=== PATIENT | male | born 1985 | race Caucasian/White ===

== ENCOUNTER 2017-11-06 15:55 | Emergency (ER) | payer MEDICAID ==
[2017-11-06 16:00] VITALS: BP 155/100
--- NOTE | 2017-11-06 16:11 | ED Physician Documentation ---
PD HPI SKIN - Stated complaint Stated Complaint: CYST ON TAILBONE - Chief complaint Chief Complaint: General - History obtained from History obtained from: Patient - History of Present Illness Timing - onset: How many days ago (4) Timing - duration: Days (4) Timing - details: Gradual onset, Still present Location: Back Quality / character: Painful, Raised, Swelling. No: Draining Associated symptoms: No: Fever Similar symptoms before: Diagnosis (pilonidal cyst) Recently seen: Not recently seen - Additional information Additional information: 32-year-old male who has a history of pilonidal cyst since his early 20s has had to have this lanced and drained once. He has had success previously with antibiotic. He has been told at one point that he did not need an operation. Review of Systems Constitutional: denies: Fever Respiratory: denies: Cough GI: denies: Vomiting Skin: reports: Lesions. denies: Rash Musculoskeletal: reports: Back pain. denies: Neck pain PD PAST MEDICAL HISTORY - Past Surgical History Past Surgical History: No - Present Medications Home Medications: Ambulatory Orders Medication Instructions Recorded Confirmed Sulfamethoxazole/Trimethoprim 1 each PO BID #14 tablet 11/06/17 [Sulfamethoxazole-Tmp Ds Tablet] - Allergies Allergies/Adverse Reactions: Allergies Allergy/AdvReac Type Severity Reaction Status Date / Time No Known Drug Allergies Allergy Verified 11/06/17 16:00 - Social History Does the pt smoke?: Yes Smoking Status: Current every day smoker Does the pt drink ETOH?: Yes Does the pt have substance abuse?: Yes - Immunizations Immunizations are current?: Yes - POLST Patient has POLST: No PD ED PE NORMAL - Vitals Vital signs reviewed: Yes (hypertensive ) - General General: Alert and oriented X 3, No acute distress, Well developed/nourished - HEENT HEENT: Atraumatic, PERRL - Respiratory Respiratory: No respiratory distress - Derm Derm: Normal color, Warm and dry, No rash - Extremities Extremities: No deformity, Other (There is an area at the end of the tailbone that is swollen and tendern conistent with an active pilonidal cyst) - Neuro Neuro: No motor deficit, No sensory deficit Eye Opening: Spontaneous Motor: Obeys Commands Verbal: Oriented GCS Score: 15 - Psych Psych: Normal mood, Normal affect Results - Vitals Vitals: Vital Signs - 24 hr 11/06/17 15:59 Temperature 36.8 C Heart Rate 93 Respiratory 20 Rate Blood Pressure 155/100 H O2 Saturation 100 Oxygen O2 Source Room air PD MEDICAL DECISION MAKING - ED course Complexity details: considered differential, d/w patient ED course: 32-year-old male with an active pilonidal cyst that is quite tender has no evidence of fluctuance today. I discussed with the patient the natural history and course of the pilonidal cyst and the ripening phenomena and of asked him to return to the emergency department if the pilonidal cyst Reitman's. Otherwise he will follow-up with surgery. Departure - Departure Disposition: Home, Self Care Clinical Impression: Pilonidal cyst Condition: Stable Instructions: ED Cyst Pilonidal Infec Abx Only Follow-Up: Ayaz Munoz MD [Provider Admit Priv/Credential] - Prescriptions: Sulfamethoxazole/Trimethoprim [Sulfamethoxazole-Tmp Ds Tablet] 1 each PO BID # 14 tablet
== END 2017-11-06 16:24 | disposition home or self-care (01) ==
LOC: ED 15:55
DX: L05.91 Pilonidal cyst without abscess (principal); F17.200 Nicotine dependence, unspecified, uncomplicated
CPT/HCPCS: 99283

== ENCOUNTER 2018-12-31 11:11 | Emergency (ER) | payer MEDICAID ==
[2018-12-31] MEDS ORDERED: DEXAMETHASONE 10 MG/ML VIAL IVP STA (13:59)
[2018-12-31] MEDS ORDERED: KETOROLAC 30 MG/ML VIAL IVP STA (13:59)
[2018-12-31] MEDS ORDERED: IOVERSOL 320 100 ML VIAL IVP ONE (14:10)
[2018-12-31 14:23] LABS: BASOPHILS # (AUTO) 0.1 10^3/uL (0.0-0.1); BASOPHILS % (AUTO) 0.6 %; EOSINOPHILS # (AUTO) 0.3 10^3/uL (0.0-0.7); EOSINOPHILS % (AUTO) 1.3 %; LYMPHOCYTES # (AUTO) 2.4 10^3/uL (1.5-3.5); LYMPHOCYTES % (AUTO) 11.7 %; MEAN CORPUSCULAR HEMOGLOBIN 30.2 pg (27.0-31.0); MEAN CORPUSCULAR VOLUME 91.7 fL (80.0-94.0); MEAN PLATELET VOLUME 9.4 fL (7.4-11.4); MONOCYTES # (AUTO) 1.6 10^3/uL (0.0-1.0); MONOCYTES % (AUTO) 7.7 %; NEUTROPHILS # (AUTO) 16.1 10^3/uL (1.5-6.6); NEUTROPHILS % (AUTO) 77.8 %; PLT - PLATELET COUNT 343 10^3/uL (130-450); RED BLOOD COUNT 4.96 10^6/uL (4.70-6.10); RED CELL DISTRIBUTION WIDTH 12.5 % (12.0-15.0); WHITE BLOOD COUNT 20.7 x10^3/uL (4.8-10.8)
[2018-12-31 14:49] LABS: CREATININE 0.7 mg/dL (0.6-1.2)
[2018-12-31 14:50] LABS: CALCIUM 9.4 mg/dL (8.5-10.3)
--- NOTE | 2018-12-31 15:05 | CT Report ---
Reason: eval for abscess, left lateral neck swelling, [employer] Procedure Date: 12/31/2018 Accession Number: [id number] / [id number] Procedure: CT - SOFT TISSUE NECK W CPT Code: FULL RESULT: EXAM: CT SOFT TISSUE NECK WITH CONTRAST. EXAM DATE: 12/31/2018 02:16 PM. HISTORY: 33-year-old man with left lateral neck swelling. Concern for abscess. COMPARISONS: None. TECHNIQUE: Routine soft tissue neck CT protocol. Reconstructions: Coronal and sagittal. IV contrast: OPTI 320 80ML. In accordance with CT protocol optimization, one or more of the following dose reduction techniques were utilized for this exam: automated exposure control, adjustment of mA and/or KV based on patient size, or use of iterative reconstructive technique. FINDINGS: Visualized Intracranial Contents: Unremarkable. Sinuses: Mucous retention cyst is present along the floor of the right maxillary sinus. Mastoid air cells are clear. Pharynx and Oral Cavity: The palatine tonsils are enlarged, left side larger than right, but both contacting the uvula at midline. Hypoenhancing region is present along the anterior margin of the left palatine tonsil that measures 1.4 cm AP by 2.0 cm transverse and 2.2 cm craniocaudal. This abuts the posterior left tongue base. There is prominent stranding in the adjacent left parapharyngeal fat planes and extending inferiorly into the piriform recess. The right parapharyngeal and retropharyngeal spaces are normal without swelling, fat stranding, or fluid collection. Base of tongue and floor of mouth are symmetric without mass lesion. Pharyngeal airway is widely patent. Larynx: Symmetric without mass lesion. True vocal cords are symmetric. Airway is widely patent. Parotid and Submandibular Glands: The parotid glands are symmetric and normal in appearance. The left submandibular gland is mildly enlarged and hyperemic, likely reflecting adjacent inflammatory reaction from the tonsillar process described below. Lymph Nodes and Soft Tissues: Multiple left cervical lymph nodes are enlarged. The largest node is a jugulodigastric node that measures 15 mm in short axis, consistent with mild reactive lymphadenopathy. No evidence of central necrosis or cystic change. There is fat stranding in the left submandibular soft tissues and thickening of the overlying left platysma. Thyroid: Normal. Lung Apices: Clear. Bones: No acute fracture or malalignment. IMPRESSION: 1. The left tonsil is enlarged, consistent with tonsillitis. Fluid collection is present within the anterior margin that measures 1.4 x 2.0 x 2.2 cm, concerning for peritonsillar abscess/developing abscess. There is marked surrounding inflammatory reaction. RADIA
[2018-12-31] MEDS ORDERED: CLINDAMYCIN 600 MG/50 ML 50 ML IV ONE (15:13)
[2018-12-31] MEDS ORDERED: BENZOCAINE SPRAY MM PRN (15:27)
[2018-12-31] MEDS ORDERED: LIDOCAINE VISCOUS 2% 15 ML UDC MM STA (15:28)
--- NOTE | 2018-12-31 16:21 | ED Physician Documentation ---
PD HPI HEENT - Stated complaint Stated Complaint: SORE THROAT - Chief complaint Chief Complaint: Heent - History obtained from History obtained from: Patient - History of Present Illness Timing - onset: How many weeks ago (1) Timing - duration: Weeks (1) Timing - details: Gradual onset, Still present, Other (worsening for 1 day) Severity Comments: severe Location: Throat Improves: Nothing Worsens: Swalllowing, Everything Associated symptoms: Fever, Trismus, Swollen nodes, Other (left neck swelling). No: Congestion, Rhinorrhea, Unable to swallow, Facial swelling, Headache, Cough Similar symptoms before: Has not had sx before Recently seen: Not recently seen - Treatment prior to arrival Treatment prior to arrival: ibuprofen, throat lozenges Review of Systems Ten Systems: 10 systems reviewed and negative Constitutional: reports: Fever. denies: Chills Ears: reports: Reviewed and negative Nose: reports: Reviewed and negative Throat: reports: Sore throat Cardiac: reports: Reviewed and negative Respiratory: reports: Reviewed and negative GI: denies: Abdominal Pain, Nausea, Vomiting Skin: reports: Reviewed and negative Musculoskeletal: reports: Reviewed and negative Neurologic: reports: Reviewed and negative Immunocompromised: reports: Reviewed and negative PD PAST MEDICAL HISTORY - Past Medical History Past Medical History: No - Past Surgical History Past Surgical History: No - Present Medications Home Medications: Ambulatory Orders Medication Instructions Recorded Confirmed Sulfamethoxazole/Trimethoprim 1 each PO BID #14 tablet 11/06/17 [Sulfamethoxazole-Tmp Ds Tablet] RX: Clindamycin HCl [Clindamycin 300 mg PO Q6H #28 capsule 12/31/18 300MG CAP] - Allergies Allergies/Adverse Reactions: Allergies Allergy/AdvReac Type Severity Reaction Status Date / Time No Known Drug Allergies Allergy Verified 11/06/17 16:00 - Social History Does the pt smoke?: Yes Smoking Status: Current every day smoker Does the pt drink ETOH?: Yes Does the pt have substance abuse?: Yes - Immunizations Immunizations are current?: Yes - POLST Patient has POLST: No PD ED PE NORMAL - General General: Alert and oriented X 3, No acute distress, Well developed/nourished - HEENT HEENT: Atraumatic - Cardiac Cardiac: RRR - Respiratory Respiratory: No respiratory distress, Clear bilaterally - Abdomen Abdomen: Soft, Non tender, Non distended - Male Male : Deferred - Rectal Rectal: Deferred - Derm Derm: Normal color, Warm and dry, No rash - Extremities Extremities: No deformity - Neuro Neuro: Alert and oriented X 3 Eye Opening: Spontaneous Motor: Obeys Commands Verbal: Oriented GCS Score: 15 - Psych Psych: Normal mood, Normal affect PD ED PE EXPANDED - HEENT HEENT: Other (trismus present, uvula however is midline, pt with diffuse swelling of pharynx, no drooling, voice is somewhat muffled, he has peritonsillar swelling ) - Neck Neck: Other (left anterior cervical lymphadenopathy and swelling present ) Results - Vitals Vitals: Vital Signs - 24 hr 12/31/18 12/31/18 11:17 16:23 Temperature 37.1 C Heart Rate 73 82 Respiratory 18 16 Rate Blood Pressure 153/95 H 158/81 H O2 Saturation 100 Oxygen O2 Source Room air - Labs Labs: Laboratory Tests 12/31/18 12/31/18 12/31/18 11:41 14:10 14:10 WBC 20.7 H RBC 4.96 Hgb 15.0 Hct 45.5 MCV 91.7 MCH 30.2 MCHC 33.0 RDW 12.5 Plt Count 343 MPV 9.4 Neut # (Auto) 16.1 H Lymph # (Auto) 2.4 [place] # (Auto) 1.6 H Eos # (Auto) 0.3 Baso # (Auto) 0.1 Absolute Nucleated RBC 0.00 Nucleated RBC % 0.0 Sodium 140 Potassium 3.8 Chloride 100 L Carbon Dioxide 26 Anion Gap 14.0 H BUN 7 Creatinine 0.7 Estimated GFR (MDRD) 129 Glucose 99 Calcium 9.4 Group A Strep Rapid POSITIVE H - Rads (name of study) CT neck/max face Radiology: Final report received, EMP read indepedently, See rad report Procedures - Abscess I&D (location) Other left Preparation: Topical spray (hurricane spray and viscous lidocaine 2%), Other (confirmed on CT peritonisllar abscess) Incision: Needle aspiration, Purulent drainage (small amount, 1cc, and bloody) Other: Pt tolerated well, Antibiotic prescribed PD MEDICAL DECISION MAKING - ED course Complexity details: reviewed results, re-evaluated patient, considered differential, d/w patient ED course: ddx - pharyngitis, tonsillitis, GIS ANALYST 33 y/o M with hx and exam as documented has a confirmed GIS ANALYST on CT scan. Performed needle aspiration here with needle sheath over needle tip to avoid deep puncture. Drained small amount of purulent fluid and some bloody fluid. Pt Given antibiotics, decadron and ibuprofen in the ED with marked improvement. He no longer has trismus. Started clindamycin and pt stable for discharge and strict return precautions were given. Departure - Departure Disposition: 01 Home, Self Care Clinical Impression: Strep pharyngitis, Peritonsillar abscess Condition: Fair Record reviewed to determine appropriate education?: Yes Instructions: ED Peritonsillar Abscess, ED Strep Pharyngitis Conf Follow-Up: your, doctor [Other] Prescriptions: RX: Clindamycin HCl [Clindamycin 300MG CAP] 300 mg PO Q6H #28 capsule Comments: Return to the ED if you develop any drooling, difficulty breathing, inability to open your mouth, fever, chills or new concerning symptoms. Take tylenol and ibuprofen as needed for pain and you can also use throat lozenges. Discharge Date/Time: 12/31/18 16:31
[2018-12-31 16:23] VITALS: BP 158/81
[2019-01-03] MEDS ORDERED: IOVERSOL 320 100 ML VIAL IVP ONE (08:24)
== END 2018-12-31 16:31 | disposition home or self-care (01) ==
LOC: ED 11:11
DX: J36 Peritonsillar abscess (principal); B95.5 Unspecified streptococcus as the cause of diseases classified elsewhere; F17.200 Nicotine dependence, unspecified, uncomplicated
CPT/HCPCS: 36415; 42700; 70491; 80048; 85025; 87430; 96365; 96375; 99284; A9270; Q9967

== ENCOUNTER 2020-04-22 10:44 | Emergency (ER) | payer MEDICAID ==
[2020-04-22] MEDS ORDERED: TETANUS/DIPHTHERIA/PERTUSSIS 0.5 ML SYRINGE IM ONE (10:53)
[2020-04-22] MEDS ORDERED: IBUPROFEN 600 MG TABLET PO STA (10:54)
--- NOTE | 2020-04-22 11:17 | XRAY Report ---
PROCEDURE: Foot 3 View RT INDICATIONS: pain R fifth metatarsal with overlying lesion TECHNIQUE: 3 views of the foot were acquired. COMPARISON: None FINDINGS: Bones: No fractures or dislocations. No suspicious bony lesions. Soft tissues: No tibiotalar joint effusion. Achilles tendon appears normal. IMPRESSION: No acute fracture. No osseous lesion. If symptoms and/or clinical suspicion for pathology continue, f urther assessment with repeat plain films, or advanced imaging (e.g., CT, MRI, or bone scan) is recom mended for further assessment. Reviewed by: Barbara Blevins MD on 04/22/2020 10:15 AM [facility] Approved by: Barbara Blevins MD on 04/22/2020 10:15 AM [facility] Station ID: [id number]
[2020-04-22 11:52] VITALS: BP 142/88
[2020-04-22] MEDS ORDERED: BACITRACIN ZINC OINT 1 PACKET TOP STA (11:53)
--- NOTE | 2020-04-22 16:58 | ED Physician Documentation ---
History of Present Illness - Stated complaint Stated Complaint: RT FT PX - Chief complaint Chief Complaint: General - History obtained from History obtained from: Patient - Additonal information Additional information: 35-year-old man, previously healthy presents with right foot pain progressive in onset over the past week. Patient works as a project construction manager and says that his socks got wet 1 day and he started to experience a blister on his right fifth toe that has progressively worsened. Today it popped and pus came out and so he came into the ED to get checked. Unsure of last tetanus shot. Patient denies puncture wound or other traumatic injury to the area. Denies fevers or pain with range of motion of the toe. Review of Systems Ten Systems: 10 systems reviewed and negative Constitutional: denies: Fever, Chills Skin: reports: Lesions Musculoskeletal: denies: Joint pain PD PAST MEDICAL HISTORY - Past Medical History Past Medical History: No - Past Surgical History Past Surgical History: No - Present Medications Home Medications: Ambulatory Orders Medication Instructions Recorded Confirmed Sulfamethoxazole/Trimethoprim 1 each PO BID #14 tablet 11/06/17 [Sulfamethoxazole-Tmp Ds Tablet] Clindamycin HCl [Clindamycin 300MG 300 mg PO Q6H #28 capsule 12/31/18 CAP] Cephalexin [Keflex] 750 mg PO BID 10 Days #20 capsule 04/22/20 - Allergies Allergies/Adverse Reactions: Allergies Allergy/AdvReac Type Severity Reaction Status Date / Time No Known Drug Allergies Allergy Verified 11/06/17 16:00 - Social History Does the pt smoke?: Yes Smoking Status: Current every day smoker Does the pt drink ETOH?: Yes ETOH Use: Beer Does the pt have substance abuse?: Yes Substance Use and Type: Marijuana - Immunizations Immunizations are current?: No Immunizations: TDAP >10years/unknown - POLST Patient has POLST: No PD ED PE NORMAL - Vitals Vital signs reviewed: Yes - General General: Alert and oriented X 3 - Derm Derm: Normal color, Warm and dry, Other (small lesion to R 5th toe with overlying erythema) - Extremities Extremities: No deformity, Normal ROM s pain Results - Vitals Vitals: Vital Signs - 24 hr 04/22/20 04/22/20 10:48 11:50 Temperature 36.5 C 36.7 C Heart Rate 77 69 Respiratory 16 16 Rate Blood Pressure 144/86 H 142/88 H O2 Saturation 98 96 Oxygen O2 Source Room air PD MEDICAL DECISION MAKING - ED course Complexity details: d/w patient ED course: 35-year-old man presents with lesion to toe concerning for abscess status post drainage. Will give antibiotics. Strict return precautions given. Follow-up with primary doctor in 1 week. Patient will return if symptoms do not improve within 1 to 2 days. Departure - Departure Disposition: 01 Home, Self Care Clinical Impression: Cellulitis Condition: Good Instructions: Cellulitis Dc Prescriptions: Cephalexin [Keflex] 750 mg PO BID 10 Days #20 capsule Comments: You have been seen for an infection of the skin overlying your toe. Please take the antibiotics you have been prescribed. Return to the ED if the swelling does not improve or if you have any worsening pain. You can take ibuprofen 600 mg every 6 hours, elevate the foot, and put ice on it for 20 minutes every hour as needed for pain.Follow-up with your primary doctor in 1 week. Discharge Date/Time: 04/22/20 12:05
== END 2020-04-22 12:05 | disposition home or self-care (01) ==
LOC: ED 10:44
DX: L03.031 Cellulitis of right toe (principal); F17.200 Nicotine dependence, unspecified, uncomplicated; Z23 Encounter for immunization
CPT/HCPCS: 73630; 90471; 90715; 99283; A9270

== ENCOUNTER 2020-06-28 10:05 | Emergency (ER) | payer MEDICAID, OTHER ==
[2020-06-28] MEDS ORDERED: KETOROLAC 60 MG/2 ML VIAL IM STA (11:24)
--- NOTE | 2020-06-28 11:29 | ED Physician Documentation ---
PD HPI Fall - Stated complaint Stated Complaint: BODY PX DUE TO FALL - Chief complaint Chief Complaint: Trauma Ch/Bk - History obtained from History obtained from: Patient - History of Present Illness Mechanism of injury: Slipped Fall distance: Standing position Where injury occurred: Work Timing - onset: Yesterday Injury(ies) location: Back, Right Upper Extremity, Left Uppper Extremity, Right Lower Extremity Quality of pain: Pain Associated symptoms: No: LOC, AMS, Amnesia, Seizures, Ear drainage, Nasal drainage, Neck pain, Weakness, Paresthesias, Dyspnea, Nausea / vomiting, Hematemesis, Abdominal distension Symptoms improve with: Rest, Ice, Meds Worsens with: Movement, Palpation Contributing factors: No: Anticoagulated Similar symptoms before: Diagnosis (injury from a fall) Recently seen: Not recently seen - Additional information Additional information: 35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 He did this yesterday at work and today he has significant pain and is able to come to the emergency department yesterday he had to go home to take care of his children. He states that he took some Aleve yesterday did not help much this morning this seems of helped a bit more. He states that he is able to walk around if he pushes pressure on his back over the left side of his lumbar spine. Review of Systems Constitutional: denies: Fever Eyes: denies: Decreased vision Ears: denies: Ear pain Nose: denies: Congestion Throat: denies: Sore throat Cardiac: denies: Chest pain / pressure Respiratory: denies: Dyspnea, Cough GI: denies: Abdominal Pain, Nausea, Vomiting : denies: Dysuria PD PAST MEDICAL HISTORY - Past Medical History Past Medical History: No - Past Surgical History Past Surgical History: No - Present Medications Home Medications: Ambulatory Orders Medication Instructions Recorded Confirmed HYDROcod/ACETAM 5/325 [[place] 5/325] 1 - 2 ea PO Q6H PRN #15 tablet 06/28/20 - Allergies Allergies/Adverse Reactions: Allergies Allergy/AdvReac Type Severity Reaction Status Date / Time No Known Drug Allergies Allergy Verified 06/28/20 10:31 - Social History Does the pt smoke?: Yes Smoking Status: Current every day smoker Does the pt drink ETOH?: Yes Does the pt have substance abuse?: Yes Substance Use and Type: Marijuana - Immunizations Immunizations are current?: No Immunizations: TDAP >10years/unknown - POLST Patient has POLST: No PD ED PE NORMAL - Vitals Vital signs reviewed: Yes (hypertensive) - General General: Alert and oriented X 3, No acute distress, Well developed/nourished - HEENT HEENT: Atraumatic, PERRL, EOMI - Neck Neck: Supple, no meningeal sign, No bony TTP - Cardiac Cardiac: RRR, No murmur - Respiratory Respiratory: No respiratory distress, Clear bilaterally, Other (no chest wall tenderness) - Abdomen Abdomen: Soft, Non tender - Back Back: No CVA TTP, Other (There is tenderness to the lumbar spine area especially over the right paraspinous muscles and the right vertebral processes. ) - Derm Derm: Normal color, Warm and dry, No rash - Extremities Extremities: No deformity, No edema, Other (There is tenderness to the right dorasal thumb with mild swelling. There is ttp on the distal radius on the L. The ligaments are stable to the right knee. No palpable effusion. ) - Neuro Neuro: Alert and oriented X 3, courtroom deputy or calendar clerk 2-12 intact, No motor deficit, No sensory deficit, Normal speech Eye Opening: Spontaneous Motor: Obeys Commands Verbal: Oriented GCS Score: 15 - Psych Psych: Normal mood, Normal affect Results - Vitals Vitals: Vital Signs - 24 hr 06/28/20 06/28/20 10:24 12:52 Temperature 36.8 C Heart Rate 81 63 Respiratory 16 20 Rate Blood Pressure 158/94 H 154/89 H O2 Saturation 100 99 Oxygen O2 Source Room air - Rads (name of study) hand Radiology: Prelim report reviewed (Impression: Slight first digit DIP subluxation. No visualized acute fracture. However, occult injury cannot be excluded. Recommend short interval imaging to follow-up in 7 to 10 days as clinically indicated for additional evaluation.), EMP read indepedently, See rad report Wrist Radiology: Prelim report reviewed, EMP read indepedently, See rad report Knee Radiology: Prelim report reviewed, EMP read indepedently, See rad report CT lumbar spine Radiology: Prelim report reviewed (Impression: 1. Left L2 and L3 transverse process fractures. 2. No vertebral body compression fracture.), EMP read indepedently, See rad report PD MEDICAL DECISION MAKING - ED course Complexity details: reviewed results, re-evaluated patient, considered differential, d/w patient ED course: 35-year-old male with a 7 foot fall from a ladder has landed on the handle of his hammer across to his back and has 2 vertebral process fractures. These appear as cracks with minimal displacement and there are no other bony findings on x-ray examination of the wrist hand and knee. Departure - Departure Disposition: 01 Home, Self Care Clinical Impression: Fracture of spinous process of lumbar vertebra Qualifiers: Encounter type: initial encounter Fracture type: closed Qualified Code(s): S32.009A - Unspecified fracture of unspecified lumbar vertebra, initial encounter for closed fracture Sprain of right thumb Qualifiers: Encounter type: initial encounter Sprain of finger site: interphalangeal joint Qualified Code(s): S63.621A - Sprain of interphalangeal joint of right thumb, initial encounter Sprain of wrist, left Qualifiers: Encounter type: initial encounter Qualified Code(s): S63.502A - Unspecified sprain of left wrist, initial encounter Sprain of right knee Qualifiers: Encounter type: initial encounter Involved ligament of knee: unspecified ligament Qualified Code(s): S83.91XA - Sprain of unspecified site of right knee, initial encounter Condition: Stable Instructions: ED Fx Comp Vertebral, ED Sprain Knee, ED Sprain Finger, ED Sprain Wrist Follow-Up: Rocky Kamara MD [Provider Admit Priv/Credential] - Prescriptions: HYDROcod/ACETAM 5/325 [[place] 5/325] 1 - 2 ea PO Q6H PRN #15 tablet PRN Reason: Pain Forms: Activity restrictions
--- NOTE | 2020-06-28 12:14 | XRAY Report ---
PROCEDURE: Wrist 4 View LT INDICATIONS: fall distal radius pain TECHNIQUE: 4 views of the wrist were acquired. COMPARISON: Right hand 06/28/2020 FINDINGS: Bones: No fractures or dislocations. No suspicious bony lesions. Scaphoid view: No visualized fracture. Soft tissues: No suspicious soft tissue calcifications. IMPRESSION: No visualized acute fracture or dislocation. However, occult injury cannot be excluded. Recommend ozzy rt interval imaging follow-up in 7-10 days as clinically indicated for additional evaluation. Reviewed by: Emeli Sahni MD on 06/28/2020 12:13 PM PST Approved by: Emeli Sahni MD on 06/28/2020 12:13 PM [facility] Station ID: [id number]
--- NOTE | 2020-06-28 12:15 | XRAY Report ---
PROCEDURE: Knee 4 View RT INDICATIONS: fall injury to the knee TECHNIQUE: 4 views of the right knee(s) were acquired. COMPARISON: None. FINDINGS: Bones: No fractures or dislocations. No suspicious bony lesions. Soft tissues: Mild joint effusion. No suspicious soft tissue calcifications. IMPRESSION: No visualized acute fracture or dislocation. However, occult injury cannot be excluded. Recommend short interval imaging follow-up in 7-10 days as clinically indicated for additional evalua tion. Reviewed by: Emeli Sahni MD on 06/28/2020 12:14 PM PST Approved by: Emeli Sahni MD on 06/28/2020 12:14 PM PST Station ID: [id number]
--- NOTE | 2020-06-28 12:16 | XRAY Report ---
PROCEDURE: Hand 3 View RT INDICATIONS: injury to the dorsal aspect of the thumb TECHNIQUE: 3 views of the hand(s) acquired. COMPARISON: X-ray wrist 06/28/2020 FINDINGS: Bones: There is slight subluxation at the first DIP joint without visualized fracture. No suspicious bony lesions. There is limited visualization of the distal aspect of the second digit secondary to o verlying radiodensity. Soft tissues: No suspicious soft tissue calcifications. IMPRESSION: Slight first digit DIP subluxation. No visualized acute fracture. However, occult injury cannot be ex cluded. Recommend short interval imaging follow-up in 7-10 days as clinically indicated for additiona l evaluation. Reviewed by: Emeli Sahni MD on 06/28/2020 12:15 PM PST Approved by: Emeli Sahni MD on 06/28/2020 12:15 PM [facility] Station ID: [id number]
--- NOTE | 2020-06-28 12:17 | CT Report ---
PROCEDURE: LUMBAR SPINE WO INDICATIONS: fall injury to lumbar spine on left TECHNIQUE: Noncontrast 3 mm thick sections acquired from the T12 level to the sacrum. Sagittal and coronal refo rmats were constructed. For radiation dose reduction, the following was used: automated exposure co ntrol, adjustment of mA and/or kV according to patient size. COMPARISON: None. FINDINGS: Image quality: Excellent. Bones: There is normal bony alignment. Minimally displaced left L2 and L3 transverse process fractur es. No acute vertebral body compression fractures. No suspicious lytic or blastic bony lesions. Jossue tral spinal caliber is of normal overall caliber. No pars defects. Mild L5-S1 degenerative disc dise ase. Soft tissues: No retroperitoneal masses or hematomas. Visualized aorta is normal in caliber. Scatte red atherosclerotic calcifications are noted in the visualized abdominal and pelvic vasculature. IMPRESSION: 1. Left L2 and L3 transverse process fractures. 2. No vertebral body compression fracture. Reviewed by: Alka Marin MD, PhD on 06/28/2020 11:16 AM [facility] Approved by: Alka Marin MD, PhD on 06/28/2020 11:16 AM [facility] Station ID: [id number]
[2020-06-28 12:53] VITALS: BP 154/89
== END 2020-06-28 13:18 | disposition home or self-care (01) ==
LOC: ED 10:05
DX: S32.028A Other fracture of second lumbar vertebra, initial encounter for closed fracture (principal); S32.038A Other fracture of third lumbar vertebra, initial encounter for closed fracture; S63.621A Sprain of interphalangeal joint of right thumb, initial encounter; S63.502A Unspecified sprain of left wrist, initial encounter; S83.91XA Sprain of unspecified site of right knee, initial encounter; W11.XXXA Fall on and from ladder, initial encounter; Y93.H3 Activity, building and construction; Y99.0 Civilian activity done for income or pay; F17.200 Nicotine dependence, unspecified, uncomplicated
CPT/HCPCS: 99284

== ENCOUNTER 2023-07-16 09:32 | Inpatient (IN) | payer MEDICAID ==
[2023-07-16] MEDS: SODIUM CHLORIDE 0.9% 1,000 ML IV STA ×2 (10:28→12:53)
[2023-07-16] MEDS: ONDANSETRON 4 MG/2 ML VIAL IVP STA (10:29)
[2023-07-16 10:35] LABS: BASOPHILS % (AUTO) 0.3 %; EOSINOPHILS % (AUTO) 0.9 %; HCT - HEMATOCRIT 49.5 % (42.0-52.0); HGB - HEMOGLOBIN 17.2 g/dL (14.0-18.0); LYMPHOCYTES % (AUTO) 11.4 %; MEAN CORPUSCULAR HEMOGLOBIN 31.6 pg (27.0-31.0); MEAN CORPUSCULAR HGB CONC 34.7 g/dL (32.0-36.0); MEAN PLATELET VOLUME 9.3 fL (7.4-11.4); MONOCYTES % (AUTO) 5.8 %; NEUTROPHILS % (AUTO) 81.2 %; PLT - PLATELET COUNT 327 10^3/uL (130-450); RED BLOOD COUNT 5.44 10^6/uL (4.70-6.10); RED CELL DISTRIBUTION WIDTH 12.2 % (12.0-15.0); WHITE BLOOD COUNT 21.7 x10^3/uL (4.8-10.8)
[2023-07-16 10:37] LABS: SLIDE REVIEW? Indicated
[2023-07-16 10:47] LABS: ALBUMIN 4.5 g/dL (3.2-5.5); ALBUMIN/GLOBULIN RATIO 1.5 (1.0-2.2); BILIRUBIN,TOTAL 1.2 mg/dL (0.2-1.0); CALCIUM 9.8 mg/dL (8.5-10.3); CREATININE 0.8 mg/dL (0.6-1.3); POTASSIUM 3.5 mmol/L (3.5-4.5); TOTAL PROTEIN 7.5 g/dL (6.4-8.9)
[2023-07-16 11:08] LABS: ABNORMAL LYMPHS % (MANUAL) 0 %
[2023-07-16] MEDS: HYDROmorphone 1 MG/ML CARPUJECT IVP STA ×2 (11:13→12:54)
[2023-07-16 11:14] LABS: BAND NEUTROPHILS % (MANUAL) 6 %; LYMPHOCYTES # (MANUAL) 2.2 10^3/uL (1.5-3.5); LYMPHOCYTES % (MANUAL) 3 %; MONOCYTES # (MANUAL) 0.4 10^3/uL (0.0-1.0); MYELOCYTES % (MANUAL) 3 %; NEUTROPHILS # (MANUAL) 18.4 10^3/uL (1.5-6.6); RBC MORPHOLOGY (MULTIPLE) 1+ ANISOCYTOSIS (NORMAL); REACTIVE LYMPHS % (MANUAL) 7 %
[2023-07-16 11:15] LABS: DIFFERENTIAL COMMENT MANUAL DIFFERENTIAL; PLATELET ESTIMATE, MANUAL NORMAL (130-450,000) (NORMAL)
--- NOTE | 2023-07-16 11:18 | ED Physician Documentation ---
PD HPI ABD PAIN - Stated complaint Stated Complaint: ABD PX - Chief complaint Chief Complaint: Abd Pain - History obtained from History obtained from: Patient - Additional information Additional information: Patient comes to the emergency department chief complaint of abdominal pain for the last 2 days. He states that it has been especially in his upper abdomen but he feels it diffusely. He denies any fevers. He has had nausea and vomiting and has had some blood in his vomitus as of this morning. He shows a picture on his cell phone and he has had streaks of blood in midst bilious emesis. The patient denies any change in his bowel movements quality ma, but states he has not had a bowel movement in the last couple days. He also states, though, that he has not really been eating anything for the last couple days either. The patient does note that he is only urinated twice in the last 2 days. The patient has a history of alcohol abuse and states he went on a mondragon recently. However, it has been several days since his last drink. No respiratory symptoms. No other complaints at this time. The patient is a smoker. PD PAST MEDICAL HISTORY - Past Medical History Past Medical History: Yes Cardiovascular: None Respiratory: None Neuro: None Endocrine/Autoimmune: None GI: Pancreatitis : None HEENT: None Psych: None Musculoskeletal: None Derm: None - Past Surgical History Past Surgical History: No - Present Medications Home Medications: Ambulatory Orders Medication Instructions Recorded Confirmed No Known Home Medications 07/16/23 07/16/23 - Allergies Allergies/Adverse Reactions: Allergies Allergy/AdvReac Type Severity Reaction Status Date / Time No Known Drug Allergies Allergy Verified 07/16/23 09:50 - Social History Does the pt smoke?: Yes Smoking Status: Current every day smoker Does the pt drink ETOH?: Yes Does the pt have substance abuse?: Yes Substance Use and Type: Marijuana - Immunizations Immunizations are current?: No Immunizations: TDAP >10years/unknown - POLST Patient has POLST: No PD ED PE NORMAL - Vitals Vital signs reviewed: Yes - General General: Alert and oriented X 3, No acute distress, Well developed/nourished, Other (The patient appears moderately uncomfortable, but is not in distress.) - HEENT HEENT: Atraumatic, PERRL, EOMI, Moist mucous membranes - Neck Neck: Supple, no meningeal sign - Cardiac Cardiac: RRR, No murmur - Respiratory Respiratory: No respiratory distress, Clear bilaterally - Abdomen Abdomen: Soft, Non distended, Other (Diffuse moderate tenderness, worse in bilateral upper quadrants and epigastrium.) - Derm Derm: Normal color, Warm and dry, No rash - Extremities Extremities: No deformity, No edema - Neuro Neuro: Alert and oriented X 3, Other (Grossly intact) - Psych Psych: Normal mood, Normal affect Results - Vitals Vitals: Vital Signs - 24 hr 07/16/23 07/16/23 07/16/23 09:46 11:50 13:00 Temperature 36.2 C L Heart Rate 127 H 91 70 Respiratory 20 15 15 Rate Blood Pressure 180/97 H 178/100 H 167/104 H O2 Saturation 100 99 94 Oxygen O2 Source Room air - Labs Labs: Laboratory Tests 07/16/23 07/16/23 07/16/23 10:26 10:26 11:15 WBC 21.7 H RBC 5.44 Hgb 17.2 Hct 49.5 MCV 91.0 MCH 31.6 H MCHC 34.7 RDW 12.2 Plt Count 327 MPV 9.3 Neut # (Auto) Not Reportable Lymph # (Auto) Not Reportable [place] # (Auto) Not Reportable Eos # (Auto) Not Reportable Baso # (Auto) Not Reportable Absolute Nucleated RBC Not Reportable Total Counted 100 Band Neuts % (Manual) 6 Reactive Lymphs % (Man) 7 Abnorm Lymph % (Manual) 0 Myelocytes % 3 H Nucleated RBC % Not Reportable Neutrophils # (Manual) 18.4 H Lymphocytes # (Manual) 2.2 Monocytes # (Manual) 0.4 Eosinophils # (Manual) 0.0 Basophils # (Manual) 0.0 Differential Comment MANUAL DIFFERENTIAL Manual Slide Review Indicated Platelet Estimate NORMAL (130-450,000) RBC Morph Micro Appear 1+ ANISOCYTOSIS Sodium 138 Potassium 3.5 Chloride 98 L Carbon Dioxide 28 Anion Gap 12.0 BUN 14 Creatinine 0.8 Estimated GFR (MDRD) 108 Glucose 127 H Lactic Acid 1.5 Calcium 9.8 Total Bilirubin 1.2 H AST 41 ALT 64 H Alkaline Phosphatase 105 Total Protein 7.5 Albumin 4.5 Globulin 3.0 Albumin/Globulin Ratio 1.5 Lipase 2005 H - Rads (name of study) CT abd/pelvis Relevant Findings:: Final report received, See rad report (pancreatitis, inflammation, no abscess or pseudocyst) PD Medical Decision Making - ED course Complexity details: reviewed old records, reviewed results, re-evaluated patient, considered differential, d/w patient ED course: The patient was treated symptomatically with IV fluids, Zofran, and Dilaudid initially, and worked up with laboratory studies. Labs showed white blood cell count of 21.7 and lipase of 2005, with normal lactate. CT scan of the abdomen and pelvis was also obtained, Which did not show any abscess or pseudocyst, but did show significant pancreatitis with tracking inflammatory fluid. I did reevaluate the patient who is feeling quite a bit better after couple of doses of Dilaudid, IV fluids, and Zofran. He had been quite ill and his CT findings were significant, and I felt he should stay in the hospital. The patient was agreeable. I spoke with Dr. Zavala, who is on-call for hospitalist duty and she did agree to admit the patient to her service. Departure - Departure Disposition: 66 [facility] DC/Xfer Clinical Impression: Alcohol abuse Pancreatitis Qualifiers: Chronicity: acute Pancreatitis type: alcohol induced Acute pancreatitis complication: no infection or necrosis Qualified Code(s): K85.20 - Alcohol induced acute pancreatitis without necrosis or infection Condition: Serious Forms: PCP List
[2023-07-16] MEDS ORDERED: iohexoL-300 100 ML VIAL ONE (11:24)
[2023-07-16] MEDS: iohexoL-300 100 ML VIAL IVP ONE (12:48)
--- NOTE | 2023-07-16 12:57 | CT Report ---
PROCEDURE: Abdomen/Pelvis W INDICATIONS: diffuse marked abd pn, vom blood, WBC 22 CONTRAST: Omni 300 100ml TECHNIQUE: After the administration of intravenous contrast, a CT scan of the abdomen and pelvis was performed. Images were recorded and evaluated at appropriate window settings. Reformats: coronal and sagittal. F or radiation dose reduction, the following was used: automated exposure control, adjustment of mA and /or kV according to patient size. COMPARISON: 07/05/2022 FINDINGS: Image quality: Diagnostic. Lower chest: Unremarkable. Liver: No solid mass. Gallbladder and biliary tree: No radiopaque stones or wall thickening. No biliary dilation. Spleen: No splenomegaly. Pancreas: Recurrent pancreatitis with diffuse pancreatic edema and peripancreatic inflammation and mi ld peripancreatic inflammatory fluid with a small amount of ascites tracking down into the pelvis. No free air or abscess or findings suggesting pancreatic necrosis. Adrenals: No adrenal nodule. Kidneys and ureters: No hydronephrosis. No renal cystic lesion which requires follow up. No solid mas s. Stomach, bowel and peritoneum: No bowel distension. No pathologic free fluid. Lymph nodes: No central or retroperitoneal adenopathy. Vessels: No infrarenal aortic aneurysm. PELVIS Reproductive organs: Unremarkable. Bladder: No abnormal wall thickening, accounting for underdistention. Pelvic lymph nodes: No pelvic adenopathy by size criteria. Bones: No aggressive osseous abnormality. Other: Small fat-containing left inguinal hernia. IMPRESSION: Recurrent acute pancreatitis. Reviewed by: Tristian Hewitt MD on 07/16/2023 12:56 PM PST Approved by: Tristian Hewitt MD on 07/16/2023 12:56 PM PST Station ID: [id number]
[2023-07-16] MEDS ORDERED: PROCHLORPERAZINE 10 MG/2 ML VIAL IVP PRN (14:22)
[2023-07-16] MEDS ORDERED: SODIUM CHLORIDE FLUSH 0.9% 10 ML SYRINGE IVP PRN (14:22)
[2023-07-16 14:28] LABS: BILIRUBIN,URINE NEGATIVE (NEGATIVE); GLUCOSE, URINE (UA) NEGATIVE (NEGATIVE); KETONES,URINE (UA) NEGATIVE (NEGATIVE); LEUKOCYTE ESTERASE, URINE NEGATIVE (NEGATIVE); NITRITE,URINE NEGATIVE (NEGATIVE); OCCULT BLOOD,URINE TRACE-INTA (NEGATIVE); PH,URINE 6.5 PH (5.0-7.5); PROTEIN,URINE TRACE mg/dL (NEGATIVE); UROBILINOGEN,URINE 0.2 (NORMAL) E.U./dL (NORMAL)
[2023-07-16 14:30] LABS: CLARITY,URINE CLEAR (CLEAR)
[2023-07-16] MEDS: HYDROmorphone 0.5 MG/0.5 ML SYRINGE IVP PRN (15:10)
[2023-07-16] MEDS: D5NS W/20 MEQ KCL 1,000 ML IV SCH (15:30)
[2023-07-16] MEDS: amLODIPine 5 MG TABLET PO STA (15:30)
--- NOTE | 2023-07-16 16:15 | PHARMACY PROGRESS NOTE ---
- Best Possible Medication History Admit Date and Time: 07/16/23 1422 Processed by: Pharmacy Medication History completed: Yes Patient Interview: Completed As the person ultimately responsible for medication therapy, providers are able to order a medication from an existing home medication list in [facility] via the "Reconcile Routine" prior to Confirmation of that medication by aviation support equipment repairer. Such practice is discouraged except when the physician, in their clinical michelle gment, deems that a medical need exists for a medication without regard to previous use.
[2023-07-16] MEDS: SODIUM CHLORIDE FLUSH 0.9% 10 ML SYRINGE IVP SCH (17:37)
--- NOTE | 2023-07-16 19:05 | HISTORY & PHYSICAL EXAMINATION ---
Chief Complaint - Chief Complaint Chief Complaint: N/V/abd pain x2 days History of Present Illness - Admitted From Admitted From:: ED - History Obtained From Records Reviewed: Yes History obtained from: ED provider and the patient - History of Present Illness HPI Comment/Other: This is a 38 y/o caus[place]ian male with Hx HTN and alcohol use and an admission here 1 year ago for alcohol-induced pancreatitis. He used to drink a 6-pack of beer a day. Since that pancreatitis admission, he has about 1 can or bottle of beer a day. Two days ago he had a celebration and had many vodka shots. The next morning, he started to have abd pain, then N/V and has had intractable N/V since then and unable to keep anything down. The pain also worsened and he presented to the ER. He was hypertensive at 180/97, tachycardia with sinus tachycardia at 127 and found to have Lipase level of 2005, bili 1.2, and WBC of 21.7, normal plt count and MCV, normal Lactic Acid level and electrolytes and BUN/creat. His AST is normal and ALT elevated at 64. He received iv Dilaudid, iv Zofran and iv fluids and underwent CT abd which showed pancreatic inflammation, without ps eudocyst or abscess. The ED provider spoke to me about this patient, for admitting him to treat his abdominal pain, and his intractable nausea and vomiting due to pancreatitis, caused by alcohol binging. History - Past Medical History Cardiovascular: reports: None Respiratory: reports: None Neuro: reports: None Endocrine/Autoimmune: reports: None GI: reports: Pancreatitis : reports: None HEENT: reports: None Psych: reports: None Musculoskeletal: reports: None Derm: reports: None MRSA Hx?: No - Family & Social History Family History Comment/Other: No significant FH Living arrangement: At home Living Situation: With spouse/s.o. Social History Notes: Alcohol intake was 6beers a day 1 year ago, now he drinks 1 beer a day and admits to parties with occaisional binging. - Substance History Abuse: Recurrent use of substance despite neg consequences: Alcohol - POLST Patient has POLST: No Meds/Allgy - Home Medications Home Medications: Ambulatory Orders Medication Instructions Recorded Confirmed No Known Home Medications 07/16/23 07/16/23 - Allergies Allergies/Adverse Reactions: Allergies Allergy/AdvReac Type Severity Reaction Status Date / Time No Known Drug Allergies Allergy Verified 07/16/23 09:50 Review of Systems - Gastrointestinal Gastrointestinal: reports: Abdominal pain, Nausea, Vomiting, Bile emesis, Other (Some blood tinged emesis) - All Other Systems All Other Systems: reports: Reviewed and negative Exam - Vital Signs Vital Signs: Vital Signs x48h Temp Pulse Pulse Resp BP BP Pulse Ox 07/16/23 18:25 74 170/108 H 07/16/23 16:00 37.0 C 94 17 169/109 H 100 07/16/23 15:04 37.1 C 98 18 165/108 H 98 07/16/23 14:58 72 15 188/100 H 97 07/16/23 13:00 70 15 167/104 H 94 07/16/23 11:50 91 15 178/100 H 99 - Physical Exam General Appearance: positive: Mild distress (His pain improved with recent iv Dilaudid treatment) Eyes Bilateral: positive: Normal inspection, EOMI ENT: positive: Dry mucous membranes Neck: positive: Nml inspection, No JVD Respiratory: positive: No respiratory distress, Breath sounds nml Cardiovascular: positive: Regular rate & rhythm, No murmur Abdomen: positive: No organomegaly, Nml bowel sounds, Tenderness (midly tender in epigastrium and RUQ and LUQ, no giuarding or rebound) Skin: positive: Warm, Dry Extremities: positive: Non-tender, No pedal edema Neurologic/Psychiatric: positive: Oriented x3, Motor nml Conclusion/Plan - Problem List (1) Acute pancreatitis Conclusion/Plan: He had a similar presentation 1 year ago, following alcohol binging. He has an elevated Lipase and mildly elevated bili and ALT. The very high WBC is also likely from this, as no other source of an infection is noted. The CT shows the inflammed pancreas. Plan: Admit to Med/Surg Cont iv fluids Follow BMP, Mg and WBC daily Bowel rest starting with ice chips then clear liquids, then to advance as tolerated IV antiemetics prn IV Dilaudid prn Follow Lipase til trending down (2) Intractable nausea and vomiting Conclusion/Plan: Plan: As in #1 (3) Alcohol consumption binge drinking Conclusion/Plan: He has stopped daily alcohol use, and his LFTs, MCV and plts do not show typical alcohol abuse values. This event was admitted binging while celebrating Plan: Treat as in #1 Thiamine when he is tolerating liquids Will give iv Pepcid BID for stress ulcer prophylaxis Will order SCDs and not Lovenox for DVT prophylaxis - Lab Results Fish Bones: 07/16/23 10:26 07/16/23 10:26 - Diagnostic Imaging Results Diagnostic Imaging Results: positive: Final report reviewed - Other Other Results/Comments: Attestation: The patient is expected to be hospitalized for >2 midnights and is expected to be discharged or transferred to another facility within 96 hours: Yes.
[2023-07-16] MEDS: FAMOTIDINE 20 MG/2 ML VIAL IVP SCH (20:24)
[2023-07-16] MEDS: hydrALAZINE INJ 20 MG/ML VIAL IVP ONE (20:29)
[2023-07-16] MEDS: ONDANSETRON 4 MG/2 ML VIAL IVP PRN (23:49)
[2023-07-17 05:51] LABS: BASOPHILS # (AUTO) 0.1 10^3/uL (0.0-0.1); BASOPHILS % (AUTO) 0.6 %; EOSINOPHILS # (AUTO) 0.9 10^3/uL (0.0-0.7); EOSINOPHILS % (AUTO) 5.8 %; HCT - HEMATOCRIT 43.3 % (42.0-52.0); HGB - HEMOGLOBIN 14.4 g/dL (14.0-18.0); LYMPHOCYTES % (AUTO) 12.4 %; MEAN CORPUSCULAR HEMOGLOBIN 30.7 pg (27.0-31.0); MEAN CORPUSCULAR HGB CONC 33.3 g/dL (32.0-36.0); MEAN CORPUSCULAR VOLUME 92.3 fL (80.0-94.0); MEAN PLATELET VOLUME 9.6 fL (7.4-11.4); MONOCYTES # (AUTO) 1.2 10^3/uL (0.0-1.0); MONOCYTES % (AUTO) 7.7 %; NEUTROPHILS # (AUTO) 11.7 10^3/uL (1.5-6.6); PLT - PLATELET COUNT 258 10^3/uL (130-450); RED BLOOD COUNT 4.69 10^6/uL (4.70-6.10); RED CELL DISTRIBUTION WIDTH 12.2 % (12.0-15.0); WHITE BLOOD COUNT 15.9 x10^3/uL (4.8-10.8)
[2023-07-17 06:14] LABS: ALBUMIN 3.5 g/dL (3.2-5.5); ALBUMIN/GLOBULIN RATIO 1.3 (1.0-2.2); BILIRUBIN,TOTAL 1.2 mg/dL (0.2-1.0); CALCIUM 8.5 mg/dL (8.5-10.3); CREATININE 0.5 mg/dL (0.6-1.3); MAGNESIUM 1.6 mg/dL (1.7-2.3); PHOSPHORUS 2.7 mg/dL (2.5-5.0); POTASSIUM 3.4 mmol/L (3.5-4.5); TOTAL PROTEIN 6.1 g/dL (6.4-8.9)
[2023-07-17 06:29] LABS: INR 1.2 (0.8-1.2); PT - PROTHROMBIN TIME 12.8 secs (9.9-12.6)
[2023-07-17] MEDS: amLODIPine 5 MG TABLET PO SCH (09:23)
[2023-07-17] MEDS: amLODIPine 5 MG TABLET PO STA (09:45)
[2023-07-17] MEDS: MAGNESIUM SULFATE 2 GRAM 2 GM/50 ML BAG IV ONE (12:58)
[2023-07-17] MEDS: oxyCODONE 5 MG TABLET PO PRN (13:14)
[2023-07-17] MEDS: POTASSIUM CHLOR 10 MEQ/100 ML 10 MEQ/100 ML BAG IV SCH (14:15)
[2023-07-17] MEDS: PRENATAL VITAMIN TABLET PO SCH (16:48)
[2023-07-17] MEDS: THIAMINE 100 MG TABLET PO SCH (16:48)
[2023-07-17] MEDS: HYDROmorphone 1 MG/ML CARPUJECT IVP PRN (16:52)
--- NOTE | 2023-07-17 17:58 | PROVIDER PROGRESS NOTE ---
Assessment/Plan - Problem List (1) Acute pancreatitis Assessment/Plan: He had a similar presentation 1 year ago, following alcohol binging then too. He has an elevated Lipase and mildly elevated bili and ALT. The very high WBC of 21 was also likely from this, as no other source of an infection is noted. The CT shows the inflammed pancreas. Lipase has decreased from 2000 down to 800. WBC down to 15, without empiric antibx His pain is still significant requiring Dilaudid. He has no more nausea but acidly liquids are giving him abdominal pain or GERD Plan: Cont iv fluids Bowel rest starting with clear liquids, and will order no acids like Cranberry juice Follow BMP, Mg and WBC daily IV antiemetics prn Cont IV Dilaudid prn Follow Lipase til trending lower (2) Intractable nausea and vomiting Conclusion/Plan: This appears to have improved Plan: As in #1 (3) Alcohol consumption binge drinking Conclusion/Plan: He has stopped daily alcohol use, and his LFTs, MCV and plts do not show typical alcohol abuse values. He admitted this event was brought on by binging while celebrating Plan: Treat as in #1 Start po Thiamine daily Cont iv Pepcid BID for stress ulcer prophylaxis Cont SCDs and not Lovenox for DVT prophylaxis - Current Meds Current Meds: Current Medications Generic Name Dose Route Start Last Admin Trade Name Emilq PRN Reason Stop Dose Admin Famotidine 20 mg 07/16/23 21:00 07/17/23 09:23 Famotidine 20 Mg/2 Ml Vial IVP 20 mg BID KAVEH Administration Hydromorphone HCl 1 mg 07/17/23 09:38 07/17/23 16:52 Hydromorphone 1 Mg/Ml Carpuject IVP 1 mg Q2H PRN Administration Pain 8 to 10 Potassium Chloride/Dextrose/Sod Cl 1,000 mls @ 100 mls/hr 07/16/23 15:00 07/17/23 13:00 D5ns W/20 Meq Kcl IV 0 mls/hr .Q10H KAVEH Infusion Ondansetron HCl 4 mg 07/16/23 14:22 07/17/23 13:18 Ondansetron 4 Mg/2 Ml Vial IVP 4 mg Q6HR PRN Administration Nausea / Vomiting Oxycodone HCl 5 mg 07/17/23 10:29 07/17/23 13:14 Oxycodone 5 Mg Tablet PO 5 mg Q4HR PRN Administration Moderate Pain (Level 4-6) Multivit/Folic Acid/Iron 1 tab 07/17/23 17:00 07/17/23 16:48 Vitamin Tablet PO 1 tab DAILYWM KAVEH Administration Sodium Chloride 10 ml 07/16/23 17:00 07/17/23 17:32 Sodium Chloride Flush 0.9% 10 Ml Syringe IVP Not Given 0100,0900,1700 KAVEH Thiamine HCl 100 mg 07/17/23 17:00 07/17/23 16:48 Thiamine 100 Mg Tablet PO 100 mg DAILY KAVEH Administration - Lab Result Fish Bone Diagrams: 07/17/23 05:13 07/17/23 05:13 - Additional Planning My Orders: My Active Orders 07/16/23 17:00 Sodium Chloride Flush 0.9% [Normal Saline Flush 0.9%] 10 ml IVP 0100,0900,1700 07/16/23 21:00 Famotidine [Pepcid] 20 mg IVP BID 07/17/23 Breakfast Clear Liquid Diet [DIET] 07/17/23 09:38 HYDROmorphone 1MG CARP [Dilaudid 1Mg Carp] 1 mg IVP Q2H PRN 07/17/23 10:29 oxyCODONE [Roxicodone] 5 mg PO Q4HR PRN 07/17/23 17:00 Vitamin [Trinatal Rx 1] 1 tab PO DAILYWM Thiamine [Vitamin B-1] 100 mg PO DAILY 07/18/23 05:00 COMPREHENSIVE METABOLIC PANEL [CHEM] DAILYLAB LIPASE [CHEM] DAILYLAB MAGNESIUM [CHEM] DAILYLAB PHOSPHORUS [CHEM] DAILYLAB 07/18/23 09:00 amLODIPine [Norvasc] 10 mg PO DAILY 07/19/23 05:00 COMPREHENSIVE METABOLIC PANEL [CHEM] DAILYLAB LIPASE [CHEM] DAILYLAB PHOSPHORUS [CHEM] DAILYLAB Subjective - Subjective Patient Reports: Other (Up-and-down with pain, still needing Dilaudid. Nausea has subsided and tolerating clear liquids) Objective Vital Signs: Vital Signs - 24 hr 07/16/23 07/16/23 07/16/23 18:25 20:29 20:59 Temperature Heart Rate [ 74 Monitoring electrodes] Respiratory Rate Blood Pressure 171/104 H Blood Pressure 170/108 H 165/103 H [Left Brachial artery] O2 Saturation 07/16/23 07/16/23 07/17/23 21:20 23:52 08:00 Temperature 37.2 C 97 C H Heart Rate [ 78 114 H Monitoring electrodes] Respiratory 17 18 Rate Blood Pressure Blood Pressure 160/102 H 172/101 H 185/114 H [Left Brachial artery] O2 Saturation 98 96 07/17/23 15:36 Temperature 36.7 C Heart Rate [ 95 Monitoring electrodes] Respiratory 18 Rate Blood Pressure Blood Pressure 120/94 H [Left Brachial artery] O2 Saturation 96 Oxygen O2 Source Room air I&O (Last 24 Hrs): Intake and Output Totals x24h 07/15/23 07/16/23 07/17/23 23:59 23:59 23:59 Intake Total 2721.667 1552.667 Balance 2721.667 1552.667 General: Alert, Oriented x3, Other (Appears fatigued, is very disheveled and unkempt) HEENT: Mucous membr. moist/pink Neck: Supple Neuro: Alert, Non Focal Cardiovascular: Regular rate, No murmurs Respiratory: No respiratory distress, Breath sounds nml Abdomen: Normal bowel sounds, Soft, No tenderness Extremities: No edema, No tenderness/swelling - Results Results: Laboratory Results WBC 15.9 x10^3/uL (4.8-10.8) H 07/17/23 05:13 RBC 4.69 10^6/uL (4.70-6.10) L 07/17/23 05:13 Hgb 14.4 g/dL (14.0-18.0) 07/17/23 05:13 Hct 43.3 % (42.0-52.0) 07/17/23 05:13 MCV 92.3 fL (80.0-94.0) 07/17/23 05:13 MCH 30.7 pg (27.0-31.0) 07/17/23 05:13 MCHC 33.3 g/dL (32.0-36.0) 07/17/23 05:13 RDW 12.2 % (12.0-15.0) 07/17/23 05:13 Plt Count 258 10^3/uL (130-450) 07/17/23 05:13 MPV 9.6 fL (7.4-11.4) 07/17/23 05:13 Neut # (Auto) 11.7 10^3/uL (1.5-6.6) H 07/17/23 05:13 Lymph # (Auto) 2.0 10^3/uL (1.5-3.5) 07/17/23 05:13 [place] # (Auto) 1.2 10^3/uL (0.0-1.0) H 07/17/23 05:13 Eos # (Auto) 0.9 10^3/uL (0.0-0.7) H 07/17/23 05:13 Baso # (Auto) 0.1 10^3/uL (0.0-0.1) 07/17/23 05:13 Absolute Nucleated RBC 0.00 x10^3/uL 07/17/23 05:13 Total Counted 100 07/16/23 10:26 Band Neuts % (Manual) 6 % (0-10) 07/16/23 10:26 Reactive Lymphs % (Man) 7 % 07/16/23 10:26 Abnorm Lymph % (Manual) 0 % 07/16/23 10:26 Myelocytes % 3 % (-0) H 07/16/23 10:26 Nucleated RBC % 0.0 /100WBC 07/17/23 05:13 Neutrophils # (Manual) 18.4 10^3/uL (1.5-6.6) H 07/16/23 10:26 Lymphocytes # (Manual) 2.2 10^3/uL (1.5-3.5) 07/16/23 10:26 Monocytes # (Manual) 0.4 10^3/uL (0.0-1.0) 07/16/23 10:26 Eosinophils # (Manual) 0.0 10^3/uL (0-0.7) 07/16/23 10:26 Basophils # (Manual) 0.0 10^3/uL (0-0.1) 07/16/23 10:26 Differential Comment MANUAL DIFFERENTIAL 07/16/23 10:26 Manual Slide Review Indicated 07/16/23 10:26 Platelet Estimate NORMAL (130-450,000) (NORMAL) 07/16/23 10:26 RBC Morph Micro Appear 1+ ANISOCYTOSIS (NORMAL) 07/16/23 10:26 PT 12.8 secs (9.9-12.6) H 07/17/23 05:13 INR 1.2 (0.8-1.2) 07/17/23 05:13 Sodium 135 mmol/L (135-145) 07/17/23 05:13 Potassium 3.4 mmol/L (3.5-4.5) L 07/17/23 05:13 Chloride 103 mmol/L (101-111) 07/17/23 05:13 Carbon Dioxide 24 mmol/L (21-32) 07/17/23 05:13 Anion Gap 8.0 (6-13) 07/17/23 05:13 BUN 7 mg/dL (6-20) 07/17/23 05:13 Creatinine 0.5 mg/dL (0.6-1.3) L 07/17/23 05:13 Estimated GFR (MDRD) 185 (>89) 07/17/23 05:13 Glucose 108 mg/dL (74-104) H 07/17/23 05:13 Lactic Acid 1.5 mmol/L (0.5-2.2) 07/16/23 11:15 Calcium 8.5 mg/dL (8.5-10.3) 07/17/23 05:13 Phosphorus 2.7 mg/dL (2.5-5.0) 07/17/23 05:13 Magnesium 1.6 mg/dL (1.7-2.3) L 07/17/23 05:13 Total Bilirubin 1.2 mg/dL (0.2-1.0) H 07/17/23 05:13 AST 22 IU/L (10-42) 07/17/23 05:13 ALT 36 IU/L (10-60) 07/17/23 05:13 Alkaline Phosphatase 82 IU/L (42-121) 07/17/23 05:13 Total Protein 6.1 g/dL (6.4-8.9) L 07/17/23 05:13 Albumin 3.5 g/dL (3.2-5.5) 07/17/23 05:13 Globulin 2.6 g/dL (2.1-4.2) 07/17/23 05:13 Albumin/Globulin Ratio 1.3 (1.0-2.2) 07/17/23 05:13 Lipase 976 U/L (11-82) H 07/17/23 05:13 Urine Color YELLOW 07/16/23 14:15 Urine Clarity CLEAR (CLEAR) 07/16/23 14:15 Urine pH 6.5 PH (5.0-7.5) 07/16/23 14:15 Ur Specific [place] 1.010 (1.002-1.030) 07/16/23 14:15 Urine Protein TRACE mg/dL (NEGATIVE) 07/16/23 14:15 Urine Glucose (UA) NEGATIVE mg/dL (NEGATIVE) 07/16/23 14:15 Urine Ketones NEGATIVE mg/dL (NEGATIVE) 07/16/23 14:15 Urine Occult Blood TRACE-INTA (NEGATIVE) 07/16/23 14:15 Urine Nitrite NEGATIVE (NEGATIVE) 07/16/23 14:15 Urine Bilirubin NEGATIVE (NEGATIVE) 07/16/23 14:15 Urine Urobilinogen 0.2 (NORMAL) E.U./dL (NORMAL) 07/16/23 14:15 Ur Leukocyte Esterase NEGATIVE (NEGATIVE) 07/16/23 14:15 Ur Microscopic Review NOT INDICATED 07/16/23 14:15 Urine Culture Comments NOT INDICATED 07/16/23 14:15
[2023-07-18 06:57] LABS: ALBUMIN 3.6 g/dL (3.2-5.5); ALBUMIN/GLOBULIN RATIO 1.2 (1.0-2.2); BILIRUBIN,TOTAL 1.1 mg/dL (0.2-1.0); CALCIUM 8.8 mg/dL (8.5-10.3); CREATININE 0.5 mg/dL (0.6-1.3); MAGNESIUM 1.9 mg/dL (1.7-2.3); PHOSPHORUS 2.8 mg/dL (2.5-5.0); POTASSIUM 3.4 mmol/L (3.5-4.5); TOTAL PROTEIN 6.5 g/dL (6.4-8.9)
[2023-07-18] MEDS: DOCUSATE SODIUM 250 MG CAPSULE PO SCH (10:28)
[2023-07-18] MEDS: amLODIPine 5 MG TABLET PO SCH (10:29)
[2023-07-18] MEDS: HYDROmorphone 0.5 MG/0.5 ML SYRINGE IVP PRN (10:29)
--- NOTE | 2023-07-18 13:35 | PROVIDER PROGRESS NOTE ---
Assessment/Plan - Problem List (1) Acute pancreatitis Assessment/Plan: He had a similar presentation 1 year ago, following alcohol binging then too. He has an elevated Lipase and mildly elevated bili and ALT. The CT shows the inflammed pancreas. The very high WBC of 21 was also likely from this, as no other source of an infection is noted. WBC down to 15 yesterday, without empiric antibx Lipase has decreased from 1999 >> 900 >> 300 today (all albs were reviewed). His pain is still significant requiring Dilaudid. He has no more nausea but acidly liquids were giving him abdominal pain or GERD, so I added acid food restriction Plan: Cont iv fluids, tapering down the rate Will advance from clear liquids, and cont no acids like Cranberry juice Follow BMP, Mg and WBC daily Cont IV Dilaudid prn, pt ready for a lower dose Anticipate DCh soon (2) HTN He was discharged on Amlodipine a year ago. Now his reconciled med list says he takes no meds at all. His BP here is running 178/106. This could be from pain or alcohol withdrawal, or untreated HTN. Plan: He is on daily Amlodipine 5 mg here since being admitted, I will increase de santiago to 10 mg daily I will start a CIWA protocol w/ prn Ativan (3) Alcohol consumption binge drinking Conclusion/Plan: He has stopped daily alcohol use, and his LFTs, MCV and plts do not show typical alcohol abuse values. He admitted this event was brought on by binging while celebrating Plan: I will start a CIWA protocol w/ prn Ativan to give Cont po Thiamine daily Cont iv Pepcid BID for stress ulcer prophylaxis, will change to po if advancing the diet today is tolerated. Cont SCDs and not Lovenox for DVT prophylaxis (4) Intractable nausea and vomiting Conclusion/Plan: RESOLVED Plan: As in #1 - Current Meds Current Meds: Current Medications Generic Name Dose Route Start Last Admin Trade Name Freq PRN Reason Stop Dose Admin Amlodipine Besylate 10 mg 07/18/23 09:00 07/18/23 10:29 Amlodipine 5 Mg Tablet PO 10 mg DAILY KAVEH Administration Docusate Sodium 250 - 500 mg 07/18/23 09:00 07/18/23 10:28 Docusate Sodium 250 Mg Capsule PO 500 mg DAILY KAVEH Administration Famotidine 20 mg 07/16/23 21:00 07/18/23 10:29 Famotidine 20 Mg/2 Ml Vial IVP 20 mg BID KAVEH Administration Hydromorphone HCl 0.5 mg 07/18/23 08:33 07/18/23 10:29 Hydromorphone 0.5 Mg/0.5 Ml Syringe IVP 0.5 mg Q2H PRN Administration Pain 8 to 10 Potassium Chloride/Dextrose/Sod Cl 1,000 mls @ 100 mls/hr 07/16/23 15:00 07/18/23 02:43 D5ns W/20 Meq Kcl IV 100 mls/hr .Q10H KAVEH Administration Ondansetron HCl 4 mg 07/16/23 14:22 07/17/23 13:18 Ondansetron 4 Mg/2 Ml Vial IVP 4 mg Q6HR PRN Administration Nausea / Vomiting Oxycodone HCl 5 mg 07/17/23 10:29 07/17/23 13:14 Oxycodone 5 Mg Tablet PO 5 mg Q4HR PRN Administration Moderate Pain (Level 4-6) Multivit/Folic Acid/Iron 1 tab 07/17/23 17:00 07/18/23 10:28 Vitamin Tablet PO 1 tab DAILYWM KAVEH Administration Sodium Chloride 10 ml 07/16/23 17:00 07/18/23 10:29 Sodium Chloride Flush 0.9% 10 Ml Syringe IVP 10 ml 0100,0900,1700 KAVEH Administration Thiamine HCl 100 mg 07/17/23 17:00 07/18/23 10:29 Thiamine 100 Mg Tablet PO 100 mg DAILY KAVEH Administration - Lab Result Fish Bone Diagrams: 07/17/23 05:13 07/18/23 06:11 - Additional Planning My Orders: My Active Orders 07/17/23 17:00 Vitamin [Trinatal Rx 1] 1 tab PO DAILYWM Thiamine [Vitamin B-1] 100 mg PO DAILY 07/18/23 08:33 HYDROmorphone 0.5MG SYRINGE [Dilaudid 0.5MG Syringe] 0.5 mg IVP Q2H PRN 07/18/23 09:00 Docusate Sodium 250Mg Capsule [Colace 250Mg Capsule] 250 - 500 mg PO DAILY amLODIPine [Norvasc] 10 mg PO DAILY 07/19/23 05:00 CBC - COMP BLD CT W/AUTO DIFF [HEME] DAILYLAB COMPREHENSIVE METABOLIC PANEL [CHEM] DAILYLAB LIPASE [CHEM] DAILYLAB PHOSPHORUS [CHEM] DAILYLAB Subjective - Subjective Patient Reports: Pain (abd pain is still up and down, still needing Dilaudid, but requesting to try a lower dose, no more N/V for over a day) Objective Vital Signs: Vital Signs - 24 hr 07/17/23 07/17/23 07/18/23 15:36 23:59 01:02 Temperature 36.7 C 37.3 C Heart Rate [ 111 H 79 Brachial] Heart Rate [ 95 Monitoring electrodes] Respiratory 18 20 Rate Blood Pressure 120/94 H 179/102 H 172/93 H [Left Brachial artery] O2 Saturation 96 96 07/18/23 08:00 Temperature 37.0 C Heart Rate [ 114 H Brachial] Heart Rate [ Monitoring electrodes] Respiratory 18 Rate Blood Pressure 178/106 H [Left Brachial artery] O2 Saturation 98 Oxygen O2 Source Room air I&O (Last 24 Hrs): Intake and Output Totals x24h 07/16/23 07/17/23 07/18/23 23:59 23:59 23:59 Intake Total 2721.667 2152.667 2135 Balance 2721.667 2152.667 2135 General: Alert, Oriented x3 HEENT: EOMI, Mucous membr. moist/pink Neck: Supple, No JVD Neuro: Alert, Non Focal, Other (No tremor) Cardiovascular: Regular rate Respiratory: No respiratory distress Abdomen: Normal bowel sounds, Soft, No tenderness Extremities: No edema, No tenderness/swelling - Results Results: Laboratory Results WBC 15.9 x10^3/uL (4.8-10.8) H 07/17/23 05:13 RBC 4.69 10^6/uL (4.70-6.10) L 07/17/23 05:13 Hgb 14.4 g/dL (14.0-18.0) 07/17/23 05:13 Hct 43.3 % (42.0-52.0) 07/17/23 05:13 MCV 92.3 fL (80.0-94.0) 07/17/23 05:13 MCH 30.7 pg (27.0-31.0) 07/17/23 05:13 MCHC 33.3 g/dL (32.0-36.0) 07/17/23 05:13 RDW 12.2 % (12.0-15.0) 07/17/23 05:13 Plt Count 258 10^3/uL (130-450) 07/17/23 05:13 MPV 9.6 fL (7.4-11.4) 07/17/23 05:13 Neut # (Auto) 11.7 10^3/uL (1.5-6.6) H 07/17/23 05:13 Lymph # (Auto) 2.0 10^3/uL (1.5-3.5) 07/17/23 05:13 [place] # (Auto) 1.2 10^3/uL (0.0-1.0) H 07/17/23 05:13 Eos # (Auto) 0.9 10^3/uL (0.0-0.7) H 07/17/23 05:13 Baso # (Auto) 0.1 10^3/uL (0.0-0.1) 07/17/23 05:13 Absolute Nucleated RBC 0.00 x10^3/uL 07/17/23 05:13 Total Counted 100 07/16/23 10:26 Band Neuts % (Manual) 6 % (0-10) 07/16/23 10:26 Reactive Lymphs % (Man) 7 % 07/16/23 10:26 Abnorm Lymph % (Manual) 0 % 07/16/23 10:26 Myelocytes % 3 % (-0) H 07/16/23 10:26 Nucleated RBC % 0.0 /100WBC 07/17/23 05:13 Neutrophils # (Manual) 18.4 10^3/uL (1.5-6.6) H 07/16/23 10:26 Lymphocytes # (Manual) 2.2 10^3/uL (1.5-3.5) 07/16/23 10:26 Monocytes # (Manual) 0.4 10^3/uL (0.0-1.0) 07/16/23 10:26 Eosinophils # (Manual) 0.0 10^3/uL (0-0.7) 07/16/23 10:26 Basophils # (Manual) 0.0 10^3/uL (0-0.1) 07/16/23 10:26 Differential Comment MANUAL DIFFERENTIAL 07/16/23 10:26 Manual Slide Review Indicated 07/16/23 10:26 Platelet Estimate NORMAL (130-450,000) (NORMAL) 07/16/23 10:26 RBC Morph Micro Appear 1+ ANISOCYTOSIS (NORMAL) 07/16/23 10:26 PT 12.8 secs (9.9-12.6) H 07/17/23 05:13 INR 1.2 (0.8-1.2) 07/17/23 05:13 Sodium 136 mmol/L (135-145) 07/18/23 06:11 Potassium 3.4 mmol/L (3.5-4.5) L 07/18/23 06:11 Chloride 102 mmol/L (101-111) 07/18/23 06:11 Carbon Dioxide 26 mmol/L (21-32) 07/18/23 06:11 Anion Gap 8.0 (6-13) 07/18/23 06:11 BUN 5 mg/dL (6-20) L 07/18/23 06:11 Creatinine 0.5 mg/dL (0.6-1.3) L 07/18/23 06:11 Estimated GFR (MDRD) 185 (>89) 07/18/23 06:11 Glucose 109 mg/dL (74-104) H 07/18/23 06:11 Lactic Acid 1.5 mmol/L (0.5-2.2) 07/16/23 11:15 Calcium 8.8 mg/dL (8.5-10.3) 07/18/23 06:11 Phosphorus 2.8 mg/dL (2.5-5.0) 07/18/23 06:11 Magnesium 1.9 mg/dL (1.7-2.3) 07/18/23 06:11 Total Bilirubin 1.1 mg/dL (0.2-1.0) H 07/18/23 06:11 AST 17 IU/L (10-42) 07/18/23 06:11 ALT 26 IU/L (10-60) 07/18/23 06:11 Alkaline Phosphatase 87 IU/L (42-121) 07/18/23 06:11 Total Protein 6.5 g/dL (6.4-8.9) 07/18/23 06:11 Albumin 3.6 g/dL (3.2-5.5) 07/18/23 06:11 Globulin 2.9 g/dL (2.1-4.2) 07/18/23 06:11 Albumin/Globulin Ratio 1.2 (1.0-2.2) 07/18/23 06:11 Lipase 322 U/L (11-82) H 07/18/23 06:11 Urine Color YELLOW 07/16/23 14:15 Urine Clarity CLEAR (CLEAR) 07/16/23 14:15 Urine pH 6.5 PH (5.0-7.5) 07/16/23 14:15 Ur Specific [place] 1.010 (1.002-1.030) 07/16/23 14:15 Urine Protein TRACE mg/dL (NEGATIVE) 07/16/23 14:15 Urine Glucose (UA) NEGATIVE mg/dL (NEGATIVE) 07/16/23 14:15 Urine Ketones NEGATIVE mg/dL (NEGATIVE) 07/16/23 14:15 Urine Occult Blood TRACE-INTA (NEGATIVE) 07/16/23 14:15 Urine Nitrite NEGATIVE (NEGATIVE) 07/16/23 14:15 Urine Bilirubin NEGATIVE (NEGATIVE) 07/16/23 14:15 Urine Urobilinogen 0.2 (NORMAL) E.U./dL (NORMAL) 07/16/23 14:15 Ur Leukocyte Esterase NEGATIVE (NEGATIVE) 07/16/23 14:15 Ur Microscopic Review NOT INDICATED 07/16/23 14:15 Urine Culture Comments NOT INDICATED 07/16/23 14:15
[2023-07-18] MEDS ORDERED: LORazepam 2 MG/ML VIAL IVP PRN (13:40)
[2023-07-18] MEDS: D5NS W/20 MEQ KCL 1,000 ML IV SCH (15:03)
[2023-07-19 06:03] LABS: BASOPHILS # (AUTO) 0.1 10^3/uL (0.0-0.1); BASOPHILS % (AUTO) 0.7 %; HCT - HEMATOCRIT 42.7 % (42.0-52.0); HGB - HEMOGLOBIN 14.3 g/dL (14.0-18.0); LYMPHOCYTES # (AUTO) 1.7 10^3/uL (1.5-3.5); LYMPHOCYTES % (AUTO) 17.4 %; MEAN CORPUSCULAR HEMOGLOBIN 30.6 pg (27.0-31.0); MEAN CORPUSCULAR HGB CONC 33.5 g/dL (32.0-36.0); MEAN CORPUSCULAR VOLUME 91.4 fL (80.0-94.0); MEAN PLATELET VOLUME 9.6 fL (7.4-11.4); MONOCYTES # (AUTO) 0.8 10^3/uL (0.0-1.0); MONOCYTES % (AUTO) 8.1 %; NEUTROPHILS # (AUTO) 6.4 10^3/uL (1.5-6.6); NEUTROPHILS % (AUTO) 63.5 %; PLT - PLATELET COUNT 277 10^3/uL (130-450); RED BLOOD COUNT 4.67 10^6/uL (4.70-6.10); RED CELL DISTRIBUTION WIDTH 11.9 % (12.0-15.0)
[2023-07-19 06:20] LABS: ALBUMIN 3.7 g/dL (3.2-5.5); ALBUMIN/GLOBULIN RATIO 1.3 (1.0-2.2); BILIRUBIN,TOTAL 0.9 mg/dL (0.2-1.0); CREATININE 0.6 mg/dL (0.6-1.3); PHOSPHORUS 3.7 mg/dL (2.5-5.0); POTASSIUM 3.5 mmol/L (3.5-4.5); TOTAL PROTEIN 6.6 g/dL (6.4-8.9)
[2023-07-19 08:14] VITALS: BP 167/110; O2SAT 96
--- NOTE | 2023-07-19 08:15 | Discharge Plan ---
Discharge Plan Problem Reviewed?: Yes Disposition: Home, Self Care Condition: Stable Prescriptions: HYDROmorphone [Dilaudid] 1 - 2 mg PO Q8H PRN #5 tablet PRN Reason: Severe Pain (Level 7-10) amLODIPine [Norvasc] 5 mg PO DAILY #30 tab Diet: Regular (Low fat) Activity Restrictions: No Restrictions Shower Restrictions: No Driving Restrictions: No Instruction Topics: Pancreatitis Health Concerns: You were hospitalized to treat abdominal pain, nausea and vomiting and dehydration which was caused by pancreatitis after alcohol binging. You received IV fluids, anti-nausea medicines, pain medicines and an easily digestible diet. Now that you can tolerate a diet you are being discharged home. Please refrain from binging alcohol. Several tablets of pain medicines were prescribed to your pharmacy in case pain is significant. You also have been restarted on blood pressure medicines which were also prescribed to your pharmacy. Remember to eat a low-salt diet. Plan of Treatment: As above. Care Goals: Improvement in symptoms and stabilization are the goals. Assessment: The patient understands and is agreeable with the plan. Additional Instructions or Follow Up instructions: You should have routine office visits with your Primary Care Provider to treat your hypertension. No Smoking: If you smoke, Please STOP! Call for help.
--- NOTE | 2023-07-19 08:20 | DISCHARGE SUMMARY ---
Discharge Summary Admit Date: 07/16/23 Discharge Date: 07/19/23 Discharging Provider: Dr Vita Zavala Primary Care Provider: -None_ Condition at Discharge: Stable Discharge Disposition: 01 Home, Self Care - [facility] History of Present Illness: This is a 38 y/o caus[place] male with Hx HTN and alcohol use and an admission here 1 year ago for alcohol-induced pancreatitis. He used to drink a 6-pack of beer a day. Since that pancreatitis admission, he has about 1 can or bottle of beer a day. Two days ago he had a celebration and had many vodka shots. The next morning, he started to have abd pain, then N/V and has had intractable N/V since then and unable to keep anything down. The pain also worsened and he presented to the ER. He was hypertensive at 180/97, tachycardia with sinus tachycardia at 127 and found to have Lipase level of 2005, bili 1.2, and WBC of 21.7, normal plt count and MCV, normal Lactic Acid level and electrolytes and BUN/creat. His AST is normal and ALT elevated at 64. He received iv Dilaudid, iv Zofran and iv fluids and underwent CT abd which showed pancreatic inflammation, without pseudocyst or abscess. The ED provider spoke to me about this patient, for admitting him to treat his abdominal pain, and his intractable nausea and vomiting due to pancreatitis, caused by alcohol binging. - HOSPITAL COURSE Hospital Course: (1) Acute pancreatitis He had a similar presentation 1 year ago, following alcohol binging then too, but was also consuming a 6-pack of beer daily a year ago, which he no longer does. He had an elevated Lipase of >2000, and mildly elevated bili and ALT. His CT showed an inflammed pancreas and WBC of 21. The WBC dropped to 15 without empiric antibx. He was managed with bowel rest (clear liquids that were slowly advanced), iv Dilaudid, iv anti-emetics and iv fluids. Lipase decreased from 2000 >> 900 >> 300>> 200 and he tolerated his diet advanced and he was discharged. (2) HTN He was discharged on Amlodipine a year ago. Now his reconciled med list showed he took no meds at all. He was hypertensive and we did resume Amldipine and he was discharged on this. (3) Alcohol consumption binge drinking He has stopped daily alcohol use, and his LFTs, MCV and plts do not show typical alcohol abuse values. He admitted this event was brought on by binging. He was on a I will start a CIWA protocol but did not go through withdrawal. He received iv Pepcid BID for stress ulcer prophylaxis, and po multi-vitamin and Thiamine daily while here. (4) Intractable nausea and vomiting Resolved with bowel rest and anti-emetics given prn. - ALLERGIES Allergies/Adverse Reactions: Allergies Allergy/AdvReac Type Severity Reaction Status Date / Time No Known Drug Allergies Allergy Verified 07/16/23 09:50 - MEDICATIONS Home Medications: Ambulatory Orders Medication Instructions Recorded Confirmed HYDROmorphone [Dilaudid] 1 - 2 mg PO Q8H PRN #5 tablet 07/19/23 amLODIPine [Norvasc] 5 mg PO DAILY #30 tab 07/19/23 - PHYSICAL EXAM AT DISCHARGE General Appearance: positive: No acute distress, Alert Eyes Bilateral: positive: Normal inspection, EOMI ENT: positive: ENT inspection nml, No signs of dehydration Neck: positive: Nml inspection, No JVD Respiratory: positive: No respiratory distress, Breath sounds nml Cardiovascular: positive: Regular rate & rhythm, No murmur Abdomen: positive: Non-tender, No organomegaly, Nml bowel sounds, No distention Skin: positive: Warm, Dry Extremities: positive: Non-tender, No pedal edema Neurologic/Psychiatric: positive: Oriented x3, CN's nml (2-12), Motor nml, Sensation nml - LABS Result Diagrams: 07/19/23 05:25 07/19/23 05:25 - DIAGNOSTIC IMAGING Diagnostic Imaging Results: Final report reviewed - TIME SPENT Time Spent in Discharge (Minutes): 25
== END 2023-07-19 09:25 | disposition home or self-care (01) | DRG 440 ==
LOC: ED 09:32 → MS2 14:22
PROVIDERS: ADMIT Internal Medicine; ATTEND Internal Medicine
DX: K85.20 Alcohol induced acute pancreatitis without necrosis or infection (principal); I10 Essential (primary) hypertension; T46.1X6A Underdosing of calcium-channel blockers, initial encounter; Z91.128 Patient's intentional underdosing of medication regimen for other reason; R00.0 Tachycardia, unspecified
CPT/HCPCS: 36415; 80053; 81001; 81003; 83605; 83690; 83735; 84100; 85025; 85610; 87086; 96374; 96375; 96376; 99284